=== PATIENT | female | born 1995 | race African-American/Black ===

== ENCOUNTER 2017-03-09 15:05 | Emergency (ER) | payer BC ==
[~2017-03-09] VITALS: Ht 172.7 cm; Wt 65.8 kg
[~2017-03-09 15:05] MED LIST: AMOX500C2 PO
[2017-03-09 16:36] LABS: *BILIRUBIN,URIN NEGATIVE (NEGATIVE); *BLOOD, URINE 3+ (NEGATIVE); *KETONES,URINE NEGATIVE (NEGATIVE); *PROTEIN,URINE 1+ (NEGATIVE); *UROBILINOGEN,URINE 0.2 E.U./dl (NORMAL); LEUKOCYTE ESTERASE ,URINE TRACE (NEGATIVE); NITRITE, URINE NEGATIVE (NEGATIVE); UGLUCOSE NEGATIVE (NEGATIVE)
[2017-03-09 16:39] LABS: *URINE HCG, QUAL NEGATIVE (NEGATIVE)
[2017-03-09 16:40] LABS: *CLARITY,URINE HAZY (CLEAR); *COLOR,URINE BROWN (YELLOW)
[2017-03-09 16:46] LABS: BACTERIA,URINE MODERATE /HPF (NONE SEEN); MUCUS,URINE FEW /LPF (0-FEW); SQUAMOUS EPITHELIAL CELL,UR MODERATE /HPF (NONE SEEN)
[2017-03-09 16:47] LABS: TRICHOMONAS,URINE PRESENT /HPF (NONE SEEN)
--- NOTE | 2017-03-09 17:59 | NUR ---
chaperoned vaginal us, pt tolerated well
[2017-03-09] MEDS ORDERED: AZITHROMYCIN 250 MG TABLET PO ONE (18:00)
[2017-03-09] MEDS ORDERED: ONDANSETRON ODT 4 MG TAB.RAPDIS SL ONE (18:00)
[2017-03-09] MEDS ORDERED: CEFTRIAXONE 500 MG VIAL IM ONE (18:00)
[2017-03-09] MEDS ORDERED: LIDOCAINE HCL 1% 20 ML VIAL ONE (18:18)
[2017-03-09] MEDS ORDERED: ONDANSETRON ODT 4 MG TAB.RAPDIS ONE (18:19)
[2017-03-09] MEDS ORDERED: CEFTRIAXONE 500 MG VIAL ONE (18:19)
[2017-03-09] MEDS ORDERED: AZITHROMYCIN 250 MG TABLET ONE (18:19)
--- NOTE | 2017-03-09 18:23 | NUR ---
Patient discharged to home in stable conditon. Written and verbal after care instructions given. Patient verbalizes understanding of instructions.pt walks in stedy gait, accompanied by family members
[2017-03-09 18:24] VITALS: BP 121/66
[2017-03-12 14:09] LABS: *GC NAA Negative (Negative); *TRIC.VAG. NAA Positive (Negative)
--- NOTE | 2017-03-13 08:03 | NUR ---
I was given the patient's gc/ct results and she is positive for ct and trich. I called her at her home number and informed her of the results. She is already taking doxycycline appropriately and feels better. She is also positive for trich and I offered to call her in a prescription for flagyl or have her come in for a single dose of 2gm here today and she said she'd come in today for treatment.
== END 2017-03-09 18:25 | disposition home or self-care (01) ==
LOC: ER 15:05
DX: N39.0 Urinary tract infection, site not specified (principal); J45.909 Unspecified asthma, uncomplicated; Z88.8 Allergy status to other drugs, medicaments and biological substances
CPT/HCPCS: 76856; 84703; 87491; A4663; J0696; J3490; Q0144; Q0162

== ENCOUNTER 2017-03-13 15:20 | Emergency (ER) | payer BC ==
[~2017-03-13] VITALS: Ht 160 cm; Wt 65.8 kg
[2017-03-13] MEDS ORDERED: DOXY100C2 PO (15:34)
[2017-03-13] MEDS ORDERED: METRONIDAZOLE 500 MG TABLET PO ONE (15:45)
--- NOTE | 2017-03-13 15:51 | NUR ---
PATIENT WAS SEEN BY MD. MEDS GIVEN ORDERED. DC AND FOLLOW UP INSTRUCTIONS GIVEN AND EXPLAINED TO PATIENT WHO STATES SHE UNDERSTANDS ALL INSTRUCTIONS.
[2017-03-13] MEDS ORDERED: METRONIDAZOLE 500 MG TABLET ONE (15:57)
== END 2017-03-13 15:56 | disposition home or self-care (01) ==
LOC: ER 15:21
DX: A74.9 Chlamydial infection, unspecified (principal); A59.01 Trichomonal vulvovaginitis; J45.909 Unspecified asthma, uncomplicated
CPT/HCPCS: 99283; A4663

== ENCOUNTER 2017-07-24 17:55 | Emergency (ER) | payer BC ==
[~2017-07-24] VITALS: Ht 160 cm; Wt 58.5 kg
[~2017-07-24 17:55] MED LIST changes: -AMOX500C2 PO; +DOXY100C2 PO
[2017-07-24] MEDS ORDERED: FOLI1TAB16 PO (18:18)
[2017-07-24] MEDS ORDERED: PREN1TAB81 PO (18:18)
--- NOTE | 2017-07-24 21:36 | NUR ---
Patient discharged to home in stable conditon. Written and verbal after care instructions given. Patient verbalizes understanding of instructions.
== END 2017-07-24 21:37 | disposition home or self-care (01) ==
LOC: ER 17:56
DX: O26.891 Other specified pregnancy related conditions, first trimester (principal); J45.909 Unspecified asthma, uncomplicated; Z3A.01 Less than 8 weeks gestation of pregnancy; Z88.8 Allergy status to other drugs, medicaments and biological substances
CPT/HCPCS: 76856; 99284; A4663